=== PATIENT | female | born 1975 | race African-American/Black ===

== ENCOUNTER 2018-09-19 20:22 | Emergency (ER) | payer MEDICAID, OTHER ==
[~2018-09-19] VITALS: Ht 167.6 cm; Wt 68.0 kg
[2018-09-19] MEDS ORDERED: ONDANSETRON HCL 4 MG/2 ML VIAL IV ONE (21:00)
[2018-09-19 21:22] LABS: Urine Bacteria FEW /hpf (None Seen); Urine Blood 2+ /uL (Negative); Urine Hyaline Cast MOD /lpf (0 - 2); Urine Mucus FEW (None Seen); Urine Specific Gravity 1.015 (1.001-1.035); Urine WBC 3 /hpf (0 - 5)
[2018-09-19 21:29] LABS: Basophils # (auto) 0.1 uL; Basophils % (auto) 0.6 % (0.0-2.0); Eosinophils # (auto) 0 uL; Eosinophils % (auto) 0.1 % (0.0-7.0); Hematocrit 48.1 % (36.0-46.0); Hemoglobin 16.2 g/dL (12.2-16.2); Lymphocytes # (auto) 3.2 uL; Lymphocytes % (auto) 16.4 % (10.0-50.0); Mean Corpuscular Hemoglobin 28.5 pg (28.0-32.0); Mean Corpuscular Hgb Conc. 33.7 g/dL (32.0-36.0); Mean Corpuscular Volume 84.6 fL (80.0-100.0); Monocytes # (auto) 1.7 uL; Monocytes % (auto) 8.6 % (0.0-12.0); Neutrophils # (auto) 14.6 uL; Neutrophils % (auto) 74.3 % (37.0-80.0); Platelet Count (auto) 388 10^3/uL (140-450); Red Blood Cells 5.68 10^6/uL (4.0-5.20); Red Cell Distribution Width 14.1 % (11.8-14.3); White Blood Cell 19.6 10^3/uL (4.4-10.8)
[2018-09-19 21:30] LABS: Alcohol, Urine < 3.0 mg/dL (0-5); Amphetamine Screen, Urine NEGATIVE (NEGATIVE); Barbiturate Scree,Urine NEGATIVE (NEGATIVE); Benzodiazephine Screen, Urine NEGATIVE (NEGATIVE); Cannabinoid Screen, Urine POSITIVE (NEGATIVE); Cocaine Screen, Urine NEGATIVE (NEGATIVE); Opiate Scree,Urine NEGATIVE (NEGATIVE); Phencyclidine Screen, Urine NEGATIVE (NEGATIVE)
[2018-09-19 21:44] LABS: Albumin 4.8 g/dL (3.4-5.0); BUN/Creatinine Ratio 15.3; Calcium 9.9 mg/dL (8.5-10.1)
[2018-09-19 21:47] LABS: Bilirubin, Total 0.6 mg/dL (0.2-1.0); Total Protein 9.3 g/dL (6.4-8.2)
[2018-09-19 21:55] LABS: Potassium 2.8 mmol/L (3.5-5.1)
[2018-09-19 22:08] LABS: Urine Bacteria NONE SEEN /hpf (None Seen); Urine Blood 2+ /uL (Negative); Urine Hyaline Cast FEW /lpf (0 - 2); Urine Mucus FEW (None Seen); Urine WBC 33 /hpf (0 - 5)
[2018-09-19] MEDS ORDERED: POTASSIUM CHL 20 Meq TABLET PO ONE (23:30)
[2018-09-19] MEDS ORDERED: SODIUM CHLORIDE 0.9% 1,000 ML IV ONE (23:30)
[2018-09-19] MEDS: POTASSIUM CHL 20MEQ/100ML 100 ML IV SCH (23:54)
[2018-09-20] MEDS ORDERED: CIPROFLOXACIN 400MG/200ML 200 ML IV ONE (01:00)
[2018-09-20 01:02] VITALS: BP 126/65
[2018-09-20] MEDS: POTASSIUM CHL 20MEQ/100ML 100 ML IV SCH (01:39)
== END 2018-09-20 03:26 | disposition home or self-care (01) ==
LOC: ER 20:22
DX: N39.0 Urinary tract infection, site not specified (principal); E87.6 Hypokalemia; K21.9 Gastro-esophageal reflux disease without esophagitis; E78.5 Hyperlipidemia, unspecified; I10 Essential (primary) hypertension; F41.9 Anxiety disorder, unspecified; F32.9 Major depressive disorder, single episode, unspecified
CPT/HCPCS: 36415; 74176; 80053; 80307; 81001; 85025; 93005; 94761; 96361; 96365; 96368; 96375; 99284; J0744; J2405; J3480; J7030